=== PATIENT | female | born 1995 ===

== ENCOUNTER 2024-02-19 03:33 | Outpatient (CLI) | payer SELFPAY | END 2024-02-19 23:59 | disposition EMS.NT | LOC: EMS 03:33 | DX: R11.2 Nausea with vomiting, unspecified (principal) ==

== ENCOUNTER 2024-02-19 04:22 | Emergency (ER) | payer SELFPAY ==
[2024-02-19] MEDS: SODIUM CHLORIDE 0.9% 1,000 ML IV STA (04:44)
[2024-02-19 04:46] VITALS: O2SAT 99
[2024-02-19] MEDS: LORazepam 2 MG/ML VIAL IVP STA (04:46)
[2024-02-19] MEDS: KETOROLAC 15 MG/ML VIAL IVP STA (04:47)
[2024-02-19] MEDS: DROPERIDOL 5 MG/2 ML VIAL IVP STA (04:47)
[2024-02-19 05:34] LABS: BASOPHILS # (AUTO) 0.1 10^3/uL (0.0-0.1); BASOPHILS % (AUTO) 1.4 %; EOSINOPHILS # (AUTO) 0.2 10^3/uL (0.0-0.7); HCT - HEMATOCRIT 36.7 % (37.0-47.0); HGB - HEMOGLOBIN 11.9 g/dL (12.0-16.0); LYMPHOCYTES # (AUTO) 1.9 10^3/uL (1.5-3.5); LYMPHOCYTES % (AUTO) 20.7 %; MEAN CORPUSCULAR HEMOGLOBIN 26.3 pg (27.0-31.0); MEAN CORPUSCULAR HGB CONC 32.4 g/dL (32.0-36.0); MEAN CORPUSCULAR VOLUME 81.2 fL (81.0-99.0); MEAN PLATELET VOLUME 12.5 fL (7.9-10.8); MONOCYTES # (AUTO) 0.4 10^3/uL (0.0-1.0); MONOCYTES % (AUTO) 4.3 %; NEUTROPHILS # (AUTO) 6.5 10^3/uL (1.5-6.6); NEUTROPHILS % (AUTO) 71.1 %; PLT - PLATELET COUNT 240 10^3/uL (130-450); RED BLOOD COUNT 4.52 10^6/uL (4.20-5.40); RED CELL DISTRIBUTION WIDTH 15.5 % (12.0-15.0); WHITE BLOOD COUNT 9.1 x10^3/uL (4.8-10.8)
[2024-02-19 06:08] LABS: ALBUMIN 4.1 g/dL (3.2-5.5); ALBUMIN/GLOBULIN RATIO 1.3 (1.0-2.2); BILIRUBIN,TOTAL 0.6 mg/dL (0.2-1.0); CALCIUM 8.9 mg/dL (8.5-10.3); CREATININE 0.9 mg/dL (0.6-1.3); POTASSIUM 3.3 mmol/L (3.5-4.5); TOTAL PROTEIN 7.3 g/dL (6.4-8.9)
--- NOTE | 2024-02-19 06:36 | ED Physician Documentation ---
PD HPI ABD PAIN - Stated complaint Stated Complaint: ABD PAIN, PANIC ATTACK - Chief complaint Chief Complaint: MHE - History obtained from History obtained from: Patient - History of Present Illness Timing - onset: How many minutes ago (30), Today Timing - duration: Hours (1/2) Timing - details: Abrupt onset, Still present Quality: Cramping, Aching, Pain Location: All over / everywhere, Epigastric Radiation: No: Chest, Upper back Improved by: No: Vomiting, Position Worsened by: No: Breathing, Position Associated symptoms: Nausea, Vomiting. No: Fever, Diarrhea, Dysuria Similar symptoms before: No diagnosis (she states similar episodes intermittenlty in the past, every 1-2 months, but had not needed to go to ER prior. Current episode the most severe. No unusual foods nor meds. Had cannibis shortly prior ot onset. Is regular cannibis user.) Recently seen: Not recently seen Review of Systems Constitutional: denies: Fever, Chills Nose: denies: Rhinorrhea / runny nose, Congestion Throat: denies: Sore throat Respiratory: denies: Cough PD PAST MEDICAL HISTORY - Past Medical History Past Medical History: Yes Cardiovascular: None Respiratory: None Neuro: None Endocrine/Autoimmune: None GI: None [employer]: None : None HEENT: None Psych: Panic attacks Musculoskeletal: None Derm: None - Past Surgical History Past Surgical History: No - Present Medications Home Medications: Ambulatory Orders Medication Instructions Recorded Confirmed Dicyclomine [Bentyl] 10 mg PO TID PRN #10 cap 02/19/24 Ondansetron Odt [Zofran] 4 mg TL Q6H PRN #10 tablet 02/19/24 Promethazine [Phenergan] 25 mg PO Q6H PRN #10 tab 02/19/24 - Allergies Allergies/Adverse Reactions: Allergies Allergy/AdvReac Type Severity Reaction Status Date / Time No Known Drug Allergies Allergy Verified 02/19/24 04:28 - Social History Does the pt smoke?: No Smoking Status: Never smoker Does the pt drink ETOH?: No Does the pt have substance abuse?: No Substance Use and Type: Marijuana - Immunizations Immunizations are current?: Yes - POLST Patient has POLST: No PD ED PE NORMAL - Vitals Vital signs reviewed: Yes - General General: Alert and oriented X 3, Well developed/nourished, Other (appears in marked distress, crying out, writhing around and hard to lay still due to discomfort and distress. ) - Neck Neck: Supple, no meningeal sign, No adenopathy - Cardiac Cardiac: RRR, No murmur - Respiratory Respiratory: No respiratory distress, Clear bilaterally - Abdomen Abdomen: Normal bowel sounds, Soft, Non distended, No organomegaly, Other (tender without guarding epigastric to mid abd. In particular not tender RLQ area. ) - Derm Derm: Normal color, Warm and dry Results - Vitals Vitals: Vital Signs - 24 hr 02/19/24 02/19/24 04:29 06:45 Temperature 36 C L 36.2 C L Heart Rate 78 88 Respiratory 16 16 Rate Blood Pressure 124/76 127/68 O2 Saturation 99 99 Oxygen O2 Source Room air - Labs Labs: Laboratory Tests 02/19/24 02/19/24 04:55 04:55 WBC 9.1 RBC 4.52 Hgb 11.9 L Hct 36.7 L MCV 81.2 MCH 26.3 L MCHC 32.4 RDW 15.5 H Plt Count 240 MPV 12.5 H Neut # (Auto) 6.5 Lymph # (Auto) 1.9 [place] # (Auto) 0.4 Eos # (Auto) 0.2 Baso # (Auto) 0.1 Absolute Nucleated RBC 0.00 Nucleated RBC % 0.0 Sodium 137 Potassium 3.3 L Chloride 106 Carbon Dioxide 19 L Anion Gap 12.0 BUN 15 Creatinine 0.9 Estimated GFR (MDRD) 75 L Glucose 181 H Calcium 8.9 Total Bilirubin 0.6 AST 19 ALT 20 Alkaline Phosphatase 40 L Total Protein 7.3 Albumin 4.1 Globulin 3.2 Albumin/Globulin Ratio 1.3 Lipase 11 PD Medical Decision Making - ED course Complexity details: reviewed results (main labs are normal. ), re-evaluated patient (feeling much better after meds, though sleepy of course. Feels comfprtable with going home. I talked with her brother who was in ED with the pt, with permission of the pt.), considered differential (the degree of anxiety, with diffuse abd pain but more upper, with nausea/vomiting, abruptly on with discrete similar prior (though less severe) episodes would be suggestive of cannibis hyperemesis. Improved with typical meds for that (Inapsine, toradol and ativan). ), d/w patient Departure - Departure Disposition: 01 Home, Self Care Clinical Impression: Generalized abdominal pain Nausea and vomiting Qualifiers: Vomiting type: unspecified Qualified Code(s): R11.2 - Nausea with vomiting, unspecified Condition: Stable Record reviewed to determine appropriate education?: Yes Instructions: ED Abdominal Pain Female Non-Specific Abdominal Pain, ED Nausea Vomiting Prescriptions: Dicyclomine [Bentyl] 10 mg PO TID PRN #10 cap PRN Reason: Abdominal Pain Promethazine [Phenergan] 25 mg PO Q6H PRN #10 tab PRN Reason: Nausea / Vomiting Ondansetron Odt [Zofran] 4 mg TL Q6H PRN #10 tablet PRN Reason: Nausea / Vomiting Comments: It is unclear the cause of your episode. It did not sound like gallbladder spasm given the location. Your basic blood test appeared normal with regard to a blood count, electrolytes, blood sugar, pancreas and liver enzymes. It is good that you are feeling better at this time with the medications that were an anti-inflammatory and nausea medicine and medication for anxiety. This combination of medicines can be useful in several conditions such as irritable bowel spasms. It also helps in episodes like this that can be caused occasionally by cannabis use. Interestingly cannabis use can be fairly regular but the episodes occur just occasional. Certain foods can trigger intestinal irritation and spasms if you are intolerant. Try to think back if some of your prior episodes were related to particularly fatty foods or gluten as a source such and see if there is a pattern that way. I wrote a prescription for nausea medicines of both Zofran and promethazine. He can try 1 or both if needed for nausea later today or with future episodes. In combination you can try a intestinal antispasmodic called dicyclomine which I also prescribed. These are simple and generic type medicines. I sent them to you the [facility] pharmacy in [place]. Small frequent fluids today and bland food initially. Progress as tolerated. Forms: PCP List Discharge Date/Time: 02/19/24 06:45
[2024-02-19 07:05] VITALS: BP 127/68
== END 2024-02-19 06:45 | disposition home or self-care (01) ==
LOC: ED 04:22
DX: R10.84 Generalized abdominal pain (principal); R11.2 Nausea with vomiting, unspecified
CPT/HCPCS: 36415; 80053; 83690; 85025; 96361; 96374; 96375; 99284; J2060